=== PATIENT | female | born 1935 | race Caucasian/White ===

== ENCOUNTER 2016-09-14 06:10 | Day surgery (SDC) | payer MEDICARE, OTHER ==
[~2016-09-14] VITALS: Ht 162.6 cm; Wt 62.3 kg
[2016-09-14 07:10] VITALS: Ht 162.6 cm; Wt 62.3 kg
[2016-09-14] MEDS ORDERED: LIDOCAINE 2% (SDV) 5 ML INJ ONE (07:26)
[2016-09-14] MEDS ORDERED: PROPOFOL 40 ML ONE (07:26)
[2016-09-14] MEDS ORDERED: ASPI-535 PO (07:32)
[2016-09-14] MEDS ORDERED: SIMV5TAB50 PO (07:32)
[2016-09-14] MEDS ORDERED: LOSA1TAB19 PO (07:32)
[2016-09-14] MEDS ORDERED: LEVO50TA83 PO (07:32)
[2016-09-14] MEDS ORDERED: NAPR275T83 PO (07:32)
[2016-09-14] MEDS ORDERED: GLIP5TAB13 PO (07:32)
[2016-09-14] MEDS ORDERED: METF500T4 PO (07:32)
[2016-09-14 07:37] VITALS: BP 149/70; PULSE 80; RESP 16
[2016-09-14 08:59] VITALS: BP 129/55; RESP 20
--- NOTE | 2016-09-14 09:37 | GILP ---
DATE OF PROCEDURE: 09/14/2016 NAME OF PROCEDURES: 1. Esophagogastroduodenoscopy and biopsy. 2. Colonoscopy. SURGEON: Trixie Morales MD PREOPERATIVE DIAGNOSIS: Iron deficiency anemia. POSTOPERATIVE DIAGNOSES: 1. Hiatal hernia. 2. Gastroesophageal reflux disease. 3. Gastritis with erosions. 4. Gastric mucosal biopsies were taken for Helicobacter pylori test. 5. Colonoscopy all the way to the cecum. 6. Internal hemorrhoids. 7. No colon neoplasm or any other bleeding lesion was identified. INDICATION FOR THE PROCEDURE: Ms. Jasmine Chicas is an 81-year-old female patient who was noted to have iron deficiency anemia. The patient was scheduled for endoscopy and colonoscopy for further ev aluation. The procedures and possible complications were well explained to the patient and the family, and con sent was obtained. DESCRIPTION OF PROCEDURE: Under the influence of anesthesia, the gastroscope was carefully introduc ed into the esophagus, and under direct vision, it was advanced to the stomach and through the pylor us into the duodenal bulb and descending duodenum. FINDINGS: ESOPHAGUS: The patient had hiatal hernia and gastroesophageal reflux disease. STOMACH: She had gastritis with erosions. Gastric mucosal biopsies were taken for H. pylori test. DUODENUM: Normal. The colonoscope was carefully introduced in the rectum, and under direct vision, it was advanced all the way to the cecum. FINDINGS: The patient had internal hemorrhoids. No colon neoplasm or any other bleeding lesion was identified. The patient tolerated the procedures very well, and there was no complication from the procedures. At the end of the procedures, she was awake with stable vital signs, and she was discharged home to the care of her family. IMPRESSION: Please see postoperative diagnosis. PLAN: 1. Omeprazole 40 mg p.o. q. a.m. 2. Await H. pylori test report. Dictated By: TRIXIE WELLS/MEHUL Conf#: [id number] DID#: [id number] CC: JOANA DANIELS MD;*EndCC*
--- NOTE | 2016-09-14 19:44 | CONS ---
DATE OF ADMISSION: 09/14/2016 DATE OF CONSULTATION: Dear Dr. Null: I thank you very much for this kind referral. HISTORY OF PRESENT ILLNESS: [place] 78-year-old female patient who has been referred to me for further evaluation of iron deficiency anemia. The patient denies any history of rectal bleeding. There is no past history of colon neoplasm. Her appetite has been good, and she is not losing any weight. Patient has got upper abdominal discomfort. This patient has been taking baby aspirin a day. She a lso takes naproxen for arthritis. She is status post cholecystectomy. She does not have any fever, chills or jaundice. There is no history of liver disease. She is hypertensive. She has diabetes. There is no history of heart disease or lung problem. There is no history of kidney disease. She has hyperlipidemia. She is status post thyroid surgery and she is hypothyroid. She is status post hysterectomy. SOCIAL HISTORY: She is a nonsmoker. She does not abuse alcohol. FAMILY HISTORY: Particular for the history of stomach cancer in his sister. ALLERGIES: SHE STATES SHE IS ALLERGIC TO PENICILLIN. MEDICATIONS: 1. Losartan. 2. Hydrochlorothiazide. 3. Metformin. 4. Glipizide. 5. Simvastatin. 6. Synthroid. 7. Naproxen. 8. Aspirin 81 mg. PHYSICAL EXAMINATION: VITAL SIGNS: She is 5 feet tall and she weighs 138 pounds. HEART: Examination of the heart reveals normal first and second heart sounds. LUNGS: Clear. ABDOMEN: Soft without any distention. Liver and spleen are not palpable. There are no masses. Th ere is no focal tenderness. Normal bowel sounds are heard. CENTRAL NERVOUS SYSTEM: Does not reveal any focal neurological deficit. LABORATORY DATA: Hemoglobin of 9.8, hematocrit 33.1, BUN 22, creatinine 0.7. IMPRESSION: 1. Iron deficiency anemia. 2. Rule out chronic gastrointestinal tract blood loss. 3. Rule out colorectal neoplasm. 4. The patient is on baby aspirin a day as well as naproxen. 5. Rule out peptic ulcer disease with blood loss. 6. Hypertension. 7. Diabetes mellitus. 8. Hyperlipidemia. 9. Status post thyroid surgery and hypothyroidism. 10. Status post cholecystectomy. 11. Status post hysterectomy. 12. Patient's sister has stomach cancer. 13. HISTORY OF ALLERGY TO PENICILLIN. PLAN: Colonoscopy and upper endoscopy for further evaluation. The procedures and possible complications are well explained to the patient and the family. They un derstand and consent to the procedures. I thank you once again. With warmest personal regards, Dictated By: PRIMO WELLS/MEHUL Conf#: [id number] DID#: [id number] CC: PRIMO COFFMAN MD;*EndCC*
== END 2016-09-14 16:26 | disposition home or self-care (01) ==
LOC: GIL 06:10
PROVIDERS: ATTEND Internal Medicine Gastroenterology
DX: K44.9 Diaphragmatic hernia without obstruction or gangrene (principal); D50.9 Iron deficiency anemia, unspecified; K21.9 Gastro-esophageal reflux disease without esophagitis; K29.60 Other gastritis without bleeding; K64.8 Other hemorrhoids; I10 Essential (primary) hypertension; E11.9 Type 2 diabetes mellitus without complications; E78.5 Hyperlipidemia, unspecified
CPT/HCPCS: 82962; 87081

== ENCOUNTER 2017-12-03 11:23 | Inpatient (IN) | END 2017-12-07 18:20 | disposition home or self-care (01) | DRG 812 ==